=== PATIENT | female | born 1970 ===

== ENCOUNTER 2024-04-30 06:00 | Day surgery (SDC) | payer OTHER ==
[2024-04-24 08:34] LABS: HEMATOCRIT 39.7 % (36.0-45.00); HEMOGLOBIN 13.5 g/dL (12.0-15.00); MEAN CELL VOLUME 96.4 fL (80.00-100.00); MEAN CORPUSCULAR HEMOGLOBIN 32.7 pg (27.00-32.0); MEAN CORPUSCULAR HGB CONC 33.9 g/dl (32.0-36.0); PLATELET COUNT 177 K/uL (150-450); RED BLOOD COUNT 4.12 M/uL (4.00-6.00); RED CELL DISTRIBUTION WIDTH 12.7 % (11.5-14.5)
[2024-04-24 08:44] VITALS: BP 150/80
[2024-04-24 08:52] LABS: INR 0.99; PARTIAL THROMBOPLASTIN TIME 25.8 SECONDS (22.0-34.0)
[2024-04-24 08:54] LABS: PH,URINE 5.5 (5.0-8.0); URINE APPEARANCE Clear; URINE BILIRRUBIN Negative (NEGATIVE); URINE BLOOD Negative; URINE COLOR Yellow; URINE GLUCOSE Negative (NEGATIVE); URINE KETONE Negative (NEGATIVE); URINE LEUKOCYTE Negative; URINE NITRATE Negative; URINE PROTEIN Negative (NEGATIVE); URINE UROBILINOGEN 0.2 E.U./dl
[2024-04-24 08:58] LABS: URINE WBC 8.8 uL (0.0-23.2)
[2024-04-24 09:03] LABS: URINE BACTERIA 3.6 uL (0.0-1933); URINE EPITHELIAL CELLS 0.6 uL (0.0-38.8); URINE RBC 1.1 uL (0.0-20.8)
[2024-04-24 09:04] LABS: PROTHROMBIN TIME 10.8 SECONDS (9.0-11.5)
[2024-04-24 10:12] LABS: ALBUMIN 3.8 gm/dL (3.4-5.0); BILIRUBIN TOTAL 0.48 mg/dL (0.3-1.2); CALCIUM 9.1 mg/dL (8.5-10.1); CREATININE SERUM 0.69 mg/dL (0.55-1.02); GFR 88.33; GLOBULINA 3.8 G/DL (2.4-3.5); POTASSIUM 4.94 mEq/L (3.5-5.1); TOTAL PROTEIN 7.6 gm/dL (6.4-8.2)
[~2024-04-30] VITALS: Ht 167.6 cm; Wt 68.0 kg
[~2024-04-30 06:00] MED LIST: CANABIS; METADONA; XANAX XR0.5 MG PO
[2024-04-30] MEDS ORDERED: CEFAZOLIN SODIUM 1,000 MG VIAL ONE (08:49)
[2024-04-30] MEDS ORDERED: LIDOCAINE HCL 1% 10ML VIAL ONE (10:11)
[2024-04-30] MEDS ORDERED: LIDOCAINE HCL 1%/EPINEPHRINE 20ML VIAL IJ ONE (10:45)
== END 2024-04-30 12:20 | disposition home or self-care (01) ==
LOC: CIR.AMB 06:00
PROVIDERS: ATTEND Surgery
DX: D21.6 Benign neoplasm of connective and other soft tissue of trunk, unspecified (principal); I10 Essential (primary) hypertension; J44.9 Chronic obstructive pulmonary disease, unspecified; M19.90 Unspecified osteoarthritis, unspecified site